=== PATIENT | female | born 1995 | race Two or more races ===

== ENCOUNTER 2018-08-25 15:16 | Emergency (ER) | payer OTHER ==
[~2018-08-25] VITALS: Ht 157.5 cm; Wt 72.5 kg
[2018-08-25 15:32] VITALS: BP 137/84
== END 2018-08-25 17:12 | disposition home or self-care (01) ==
LOC: ER 15:17
DX: R20.8 Other disturbances of skin sensation (principal); R20.0 Anesthesia of skin; N64.4 Mastodynia; F12.10 Cannabis abuse, uncomplicated; F15.10 Other stimulant abuse, uncomplicated; Z59.0 Homelessness
CPT/HCPCS: 99281